=== PATIENT | female | born 1980 | race Caucasian/White ===

== ENCOUNTER 2016-04-11 21:36 | Emergency (ER) | payer OTHER ==
[2016-04-11 21:47] VITALS: RESP 18; TEMP 98.6
[2016-04-11 21:57] LABS: APPEARANCE,URINE Cloudy; BILIRUBIN,URINE NEGATIVE (NEGATIVE); COLOR,URINE Dark yellow; GLUCOSE, URINE (UA) NEGATIVE (NEGATIVE); KETONES,URINE NEGATIVE (NEGATIVE); LEUKOCYTE ESTERASE ,URINE 2+ (NEGATIVE); NITRATE,URINE NEGATIVE (NEGATIVE); OCCULT BLOOD,URINE 3+ (NEG-TRACE); PH,URINE 5.5; UROBILINOGEN,URINE 0.2 (0.2-1.0 EU)
[2016-04-11 22:08] LABS: BASOPHILS % (AUTO) 1 % (0-3); EOSINOPHILS % (AUTO) 2 % (0-9); HEMATOCRIT 38 % (35-47); MEAN CORPUSCULAR VOLUME 83 fL (81-99); MONOCYTES % (AUTO) 5.6 % (0-12); NEUTROPHILS % (AUTO) 69.8 % (37-80)
[2016-04-11 22:16] LABS: RBC,URINE 200-300 (0-3AV/HPF); WBC,URINE 150-250 (0-5AV/HPF)
[2016-04-11] MEDS ORDERED: CIPROFLOXACIN HCL 500 MG TAB PO ONE ×2 (22:28→22:32)
[2016-04-11 23:09] VITALS: BP 108/73; PULSE 102; O2SAT 100
== END 2016-04-11 22:30 | disposition home or self-care (01) | DRG 690 ==
LOC: ED 21:36
DX: N39.0 Urinary tract infection, site not specified (principal)
CPT/HCPCS: 36415; 81001; 85025; 87077; 87088; 87186; 99283